=== PATIENT | female | born 1955 | race Caucasian/White ===

== ENCOUNTER 2021-01-11 11:17 | Outpatient (RCR) | payer BC, SELFPAY | END 2021-02-08 23:59 | disposition home or self-care (01) | LOC: SPT 11:17 | PROVIDERS: PCP Family Medicine; Referring Provider Otolaryngology; Visit Provider Otolaryngology | DX: H81.10 Benign paroxysmal vertigo, unspecified ear (principal) | CPT/HCPCS: 95992; 97162 ==

== ENCOUNTER → 2022-04-07 11:54 | Outpatient (BNVA) | payer MEDICARE, BC, SELFPAY | PROVIDERS: PCP Family Medicine; Visit Provider Nurse Practitioner Family | DX: S62.396A Other fracture of fifth metacarpal bone, right hand, initial encounter for closed fracture (principal); M79.641 Pain in right hand; M25.531 Pain in right wrist; W19.XXXA Unspecified fall, initial encounter | CPT/HCPCS: 73110; 73130 ==

== ENCOUNTER 2022-06-06 10:47 | Outpatient (CLI) | payer MEDICARE, BC, SELFPAY ==
--- NOTE | 2022-06-06 10:59 | MR_ITS ---
WS: [id number] MRI HEAD WITH CONTRAST WITH ATTENTION TO THE INTERNAL AUDITORY CANALS TECHNIQUE: Sagittal T1, T2 axial, T2 axial flair, axial susceptibility weighted imaging, axial diffus ion weighted images, and coronal T2 images were obtained. Pre and post T1 axial and post T1 coronal i mages. ADC and FSPGR images. Post gadolinium images with attention to the internal auditory canals. A xial fiesta imaging. CLINICAL INFORMATION: BENIGN PAROXYSMAL VERTIGO, LEFT EAR COMPARISON: None. FINDINGS: No evidence of restricted diffusion to suggest acute ischemia. Mild supratentorial white matter glaser es likely due to small vessel disease in a patient this age. Minimal parenchymal volume loss. Normal posterior fossa. Normal vascular flow voids at the skull base. No extra-axial fluid collections. No e vidence of mass or mass effect. Paranasal sinuses are well aerated. Partial opacification the RIGHT g reater than LEFT mastoid air cells. Tiny focus of hemosiderin in the LEFT frontal parietal junction. Proximal 7th and 8th IACs are normal in appearance. Normal trigeminal nerve root entry zones. No evidence of enhancing IAC or CP angle ma ss. Normal optic chiasm and pituitary infundibulum. Temporal lobes and hippocampal formations are nor mal in appearance. Normal cavernous sinuses and Meckel's cave. Normal dural venous sinuses. No abnorm al intracranial enhancement. Benign incidental venous angioma RIGHT deep frontal white matter. MR/MR iac's wo/w con* [id number] IMPRESSION: 1. Mild small vessel changes. Minimal parenchymal volume loss. 2. Partial opacification of the RIGHT mastoid air cells. Trace mucosal thicken ing LEFT mastoid tip. Paranasal sinuses are well aerated. 3. 7th and 8th cranial nerves are normal in appearance. No evidence of enhanci ng IAC or CP angle mass. 4. Normal trigeminal nerve root entry zones. 5. Benign incidental venous angioma RIGHT frontal deep white matter. 6. Single punctate focus of hemosiderin in the LEFT frontal parietal junction.
[2022-06-06] MEDS: gadobenate dimeglumine 20 mL vial IV (11:53)
== END 2022-06-06 10:48 | disposition home or self-care (01) ==
LOC: RAD 10:49
PROVIDERS: PCP Family Medicine; Visit Provider Specialist
DX: H81.12 Benign paroxysmal vertigo, left ear (principal); Q28.3 Other malformations of cerebral vessels
CPT/HCPCS: 70553